=== PATIENT | male | born 1985 | race Caucasian/White ===

== ENCOUNTER 2017-06-19 00:37 | Emergency (ER) | payer MEDICAID ==
[~2017-06-19] VITALS: Ht 180.3 cm; Wt 124.0 kg
[2017-06-19 00:55] VITALS: BP 143/98
[2017-06-19] MEDS ORDERED: dexamethasone sod phosphate 10mg/ml inj IM STA (01:57)
[2017-06-19] MEDS ORDERED: IBUP-1984 PO (02:00)
[2017-06-19] MEDS ORDERED: pseudoephedrine 30mg tablet PO ONE (02:00)
[2017-06-19] MEDS ORDERED: PSEU120T55 PO (02:00)
[2017-06-19] MEDS ORDERED: AMOX500C2 PO (02:00)
== END 2017-06-19 02:15 | disposition home or self-care (01) ==
LOC: ER 00:39
DX: K12.2 Cellulitis and abscess of mouth (principal); B34.9 Viral infection, unspecified; H66.91 Otitis media, unspecified, right ear; G89.29 Other chronic pain; Z60.2 Problems related to living alone; Z79.899 Other long term (current) drug therapy
CPT/HCPCS: 96372; 99283; J1100